=== PATIENT | male | born 1985 | race Caucasian/White ===

== ENCOUNTER 2018-12-09 08:10 | Day surgery (SDC) | payer OTHER ==
[~2018-12-09 08:10] MED LIST: CYMBALTA PO; GABAPENTIN300 MG PO; NEUR PO; OSTERA TABLET1 EACH PO
== END 2018-12-09 11:20 | disposition home or self-care (01) ==
LOC: CIR.AMB 08:10
DX: M51.27 Other intervertebral disc displacement, lumbosacral region (principal)